=== PATIENT | female | born 1995 | race Caucasian/White ===

== ENCOUNTER 2018-07-21 07:51 | Emergency (ER) | payer BC ==
[2018-07-21 08:19] LABS: Bilirubin Negative (Negative); Blood, Urine Small (Negative); Clarity Slightly Cloudy (Clear); Glucose, Urine (Dipstick) Negative (Negative); Leukocyte Negative (Negative); Nitrite Negative (Negative); Protein, Urine (Dipstick) Negative (Neg-Trace); Specific Gravity, Urine 1.015 (1.005-1.030); Urobilinogen 0.2 mg/dL (0.2-1.0); pH, Urine 8.5 (5.0-9.0)
[2018-07-21 08:21] LABS: Bacteria/HPF None Seen HPF (None Seen); Crystals/HPF 3+ AMORPH PHOS HPF (Negative); Hyaline Casts/LPF NONE SEEN LPF (0-3 Hyaline); RBC/HPF 0-3 HPF (0-3); Squamous Epithelial 0-3 HPF (0-3); WBC/HPF 0-3 HPF (0-3)
[2018-07-21 08:28] LABS: #Basophils 0.1 thou/uL (0.0-0.2); #Eosinphils 0.1 thou/uL (0.0-0.7); #Monocytes 0.5 thou/uL (0.11-0.59); %Basophils 0.6 % (0.0-1.0); %Lymphocytes 23.3 % (21.0-51.0); %Monocytes 5.4 % (0.0-10.0); %Neutrophils 69.7 % (42.0-75.0); Hemoglobin 12.1 g/dL (12.0-16.0); Mean Corpuscular HGB CONC 34.1 g/dL (32.0-36.0); Mean Corpuscular Hemoglobin 30.7 pg (27.0-31.0); Mean Corpuscular Volume 90.1 fL (78.0-98.0); Mean Platelet Volume 7.3 fL (7.4-10.4); Platelet Count 267 thou/uL (130-400); RBC Distribution Width 10.6 % (11.5-14.5); Red Blood Cell (RBC) Count 3.93 mill/uL (4.20-5.40); White Blood Cell (WBC) Count 8.6 thou/uL (4.8-10.8)
--- NOTE | 2018-07-21 09:48 | ULT ---
LIMITED OBSTETRICAL ULTRASOUND: Date; 07/21/18 COMPARISON: None. HISTORY: 23-year-old female with vaginal bleeding. TECHNIQUE: Multiplanar Noe scale sonographic imaging of the gravid uterus obtained. FINDINGS: A single intrauterine gestation is present, demonstrating a vertex presentation. Placenta is located in the anterior fundal region, demonstrating no evidence for placental previa or abruption. heart rate is 163 beats/minute. Amniotic fluid volume appears qualitatively normal. The a natomy is not fully assessed on this examination secondary to gestational age. Biometry: BPD: 2.8 cm, 15 weeks/0 days HC: 10.9 cm, 15 weeks/1 day AC: 8.6 cm, 14 weeks/6 days FL: 1.7 cm, 15 weeks/0 days Average age based on ultrasound is 14 weeks/6 days. Estimated date of delivery is 01/13/19. IMPRESSION: Single, viable intrauterine gestation. No acute findings. POS: [facility]
== END 2018-07-21 09:18 | disposition home or self-care (01) ==
LOC: SCSER 07:51
DX: O20.9 Hemorrhage in early pregnancy, unspecified (principal); Z3A.15 15 weeks gestation of pregnancy
CPT/HCPCS: 76815; 81003; 81015; 84702; 85025

== ENCOUNTER 2023-12-25 09:37 | Day surgery (SDC) | payer BC ==
[2023-12-24 11:44] VITALS: BMI 25.5
[2023-12-25] MEDS ORDERED: CEFAZOLIN 2 GM VIAL ONE (10:52)
[2023-12-25] MEDS ORDERED: Sodium Chloride 0.9% 100 ML ONE ×2 (10:52→12:15)
[2023-12-25] MEDS ORDERED: Heparin 5,000 UNITS/ML VIAL ONE (10:52)
[2023-12-25] MEDS ORDERED: Gentamicin 80 MG/2 ML VIAL ONE (11:11)
[2023-12-25] MEDS ORDERED: EPINEPHrine 1 MG/ML VIAL ONE (11:11)
[2023-12-25] MEDS ORDERED: Vancomycin 1 GM VIAL ONE (11:12)
[2023-12-25] MEDS ORDERED: Bupivacaine 0.25% HCL 30 ML VIAL ONE (11:12)
[2023-12-25] MEDS ORDERED: Lidocaine 1% (PF) 30 ML VIAL ONE (11:12)
[2023-12-25] MEDS ORDERED: Bacitracin Zinc Ointment 30 gm TUBE ONE (11:12)
[2023-12-25] MEDS ORDERED: PROPOFOL 20 ML ONE ×2 (11:38→11:55)
[2023-12-25] MEDS ORDERED: fentaNYL PF 100 MCG/2 ML SYRINGE ONE (11:38)
[2023-12-25] MEDS ORDERED: Lidocaine 2% PF 5 ML VIAL ONE (11:38)
[2023-12-25] MEDS ORDERED: Tranexamic Acid 1,000 MG/10 ML VIAL ONE (12:12)
[2023-12-25] MEDS ORDERED: Heparin 10,000 UNITS/ 10 ML VIAL ONE (12:12)
[2023-12-25] MEDS ORDERED: Dexmedetomidine 200 MCG/2 ML VIAL ONE (12:15)
[2023-12-25] MEDS ORDERED: HYDROmorphone 2 MG/ML VIAL ONE (12:23)
[2023-12-25] MEDS ORDERED: Ondansetron PF 4 MG/2 ML Vial ONE ×2 (12:45→16:04)
[2023-12-25] MEDS ORDERED: Ketorolac Tromethamine 30 MG (1 mL) VIAL ONE (12:45)
[2023-12-25] MEDS ORDERED: Dexamethasone 20 MG/5 ML VIAL ONE (12:45)
[2023-12-25] MEDS ORDERED: Ketamine In 0.9 % NaCl 50 MG/5 ML SYRINGE ONE (14:48)
[2023-12-25] MEDS ORDERED: Glycopyrrolate 0.2 MG/ML 5 ML SYRINGE ONE (14:50)
[2023-12-25] MEDS ORDERED: PHENYLEPHRINE-NS 100 MCG/ML 10 ML SYRINGE ONE (15:11)
[2023-12-25] MEDS ORDERED: Promethazine HCl 25 MG/ML VIAL ONE (16:25)
== END 2023-12-25 17:20 | disposition home or self-care (01) ==
LOC: SDC 09:37
PROVIDERS: ATTEND Plastic Surgery
PROC: 0HBV0ZZ Excision of Bilateral Breast, Open Approach (ICD-10-PCS; principal; 2023-12-25)
DX: N62 Hypertrophy of breast (principal)
CPT/HCPCS: J0171; J0665; J1100; J1170; J1580; J1644; J1885; J2001; J2405; J2550; J2704; J3370; J3490